=== PATIENT | male | born 1945 | race Caucasian/White ===

== ENCOUNTER 2019-11-11 15:14 | Emergency (ER) | payer OTHER ==
[~2019-11-11] VITALS: Ht 185.4 cm; Wt 106.6 kg
[2019-11-11] MEDS ORDERED: ASA81BEC PO (15:21)
[2019-11-11] MEDS ORDERED: CARVEDILOL12.5 MG PO (15:21)
[2019-11-11] MEDS ORDERED: ACETAMINOPHEN650 M5 PO (15:21)
[2019-11-11] MEDS ORDERED: DEPAKOTE ER500 M1 PO (15:22)
[2019-11-11] MEDS ORDERED: CLONAZEPAM 0.50.5 M1 PO (15:22)
[2019-11-11] MEDS ORDERED: EXCEDRIN CAPLE1 EACH PO (15:23)
[2019-11-11] MEDS ORDERED: METFORMIN HCL500 M3 PO (15:23)
[2019-11-11] MEDS ORDERED: ADVIL200 M3 PO (15:23)
[2019-11-11] MEDS ORDERED: ZOCOR80 MG PO (15:24)
[2019-11-11] MEDS ORDERED: RISPERDAL4 M1 PO (15:24)
[2019-11-11] MEDS ORDERED: PRISTIQ50 MG PO (15:24)
[2019-11-11] MEDS ORDERED: BUPROPION HCL200 M1 PO (15:25)
[2019-11-11] MEDS ORDERED: CENTRUM SILVER1 EAC4 PO (15:25)
[2019-11-11 15:47] LABS: URINE BILIRUBIN NEGATIVE (Negative); URINE BLOOD NEGATIVE (Negative); URINE CLARITY CLEAR; URINE COLOR YELLOW; URINE GLUCOSE-RANDOM 3+ (Negative); URINE KETONES 1+ (Negative); URINE LEUKOCYTES-REFLEX NEGATIVE (Negative); URINE NITRITE-REFLEX NEGATIVE (Negative); URINE PROTEIN NEGATIVE (Negative); URINE SPECIFIC GRAVITY 1.015 (1.005-1.030)
[2019-11-11 16:03] LABS: ABSOLUTE BASOPHILS 0.1 thou/uL (0.0-0.2); ABSOLUTE EOSINOPHILS 0.2 thou/uL (0.0-0.7); ABSOLUTE LYMPHOCYTES 2.1 thou/uL (0.8-5.3); ABSOLUTE NEUTROPHILS 4.1 thou/uL (1.6-8.1); BASOPHILS 0.7 %; EOSINOPHILS 2.8 %; HEMATOCRIT 40.6 % (42.0-52.0); HEMOGLOBIN 14.1 gm/dL (14.0-18.0); LYMPHOCYTES 28.1 %; MCH 32.9 pg (26.0-34.0); MCHC 34.8 g/dL (28.0-37.0); MCV 94.4 fL (80.0-100.0); MPV 8.8 fl. (7.2-11.1); NUCLEATED RBCS 0 /100WBC; PLATELET COUNT* 189 thou/uL (150-400); POLYS 55.4 %; RDW-CV 13.3 % (10.5-14.5); WBC 7.3 thou/uL (4.0-11.0)
[2019-11-11 16:10] LABS: CALCIUM 8.5 mg/dL (8.5-10.1); CREATININE 0.9 mg/dL (0.6-1.3); POTASSIUM 4.1 mmol/L (3.5-5.1)
[2019-11-11 16:20] LABS: ALBUMIN 2.9 g/dL (3.4-5.0); TOTAL BILIRUBIN 0.4 mg/dL (<0.1-1.0)
[2019-11-11] MEDS ORDERED: ZPAK PO (18:18)
[2019-11-11] MEDS ORDERED: IBUPROFEN 800800 M1 PO (18:18)
[2019-11-11] MEDS ORDERED: NORCO 5-325 TA1 EAC1 PO (18:18)
[2019-11-11 18:44] VITALS: BP 150/77
--- NOTE | 2019-11-12 10:50 | EKG ---
[place] [address] ELECTROCARDIOGRAM REPORT Name: CHRIS HUA [id number] Admission: 11/11/19 Attend Phys: Discharge: 11/11/19 Date of : 45 Date of Service: 11/11/19 1543 Report #: [id number] THIS REPORT FOR: //name// [facility] ED Test Date: 2019-11-11 Test Time: 15:43:12 Pat Name: CHRIS HUA Department: Room: Gender: Fruit Inspector: : 1945 Requested By: Shirley Wharton Order Number: [id number] MD: Chris Matson Measurements Intervals [place] Rate: 74 P: -26 MI: 178 QRS: -68 QRSD: 126 T: 80 QT: 398 QTc: 442 Interpretive Statements atrial and Ventricular-paced complexes No previous ECG available for comparison Electronically Signed On 11-12-2019 10:48:44 CDT by Chris Matson [email or web address] <ELECTRONICALLY SIGNED> By: Chris Matson MD, [facility] 11/12/19 1048 1543 1543 Chris Matson MD, [facility] /EPI
== END 2019-11-11 18:48 | disposition home or self-care (01) ==
LOC: M.ERS 15:14
PROVIDERS: Nurse Practitioner Family
DX: M51.36 Other intervertebral disc degeneration, lumbar region (principal); J06.9 Acute upper respiratory infection, unspecified; J44.9 Chronic obstructive pulmonary disease, unspecified; E11.9 Type 2 diabetes mellitus without complications; E78.00 Pure hypercholesterolemia, unspecified; G43.909 Migraine, unspecified, not intractable, without status migrainosus; I10 Essential (primary) hypertension

== ENCOUNTER 2019-11-22 01:02 | Emergency (ER) | payer OTHER ==
[~2019-11-22] VITALS: Ht 185.4 cm; Wt 106.6 kg
[~2019-11-22 01:02] MED LIST: ACETAMINOPHEN650 M5 PO; ADVIL200 M3 PO; ASA81BEC PO; BUPROPION HCL200 M1 PO; CARVEDILOL12.5 MG PO; CENTRUM SILVER1 EAC4 PO; CLONAZEPAM 0.50.5 M1 PO; DEPAKOTE ER500 M1 PO; EXCEDRIN CAPLE1 EACH PO; IBUPROFEN 800800 M1 PO; METFORMIN HCL500 M3 PO; NORCO 5-325 TA1 EAC1 PO; PRISTIQ50 MG PO; RISPERDAL4 M1 PO; ZOCOR80 MG PO; ZPAK PO
[2019-11-22] MEDS ORDERED: CLONAZEPAM 0.50.5 M1 PO (01:35)
[2019-11-22 01:37] LABS: ABSOLUTE BASOPHILS 0.1 thou/uL (0.0-0.2); ABSOLUTE EOSINOPHILS 0.1 thou/uL (0.0-0.7); ABSOLUTE LYMPHOCYTES 2.4 thou/uL (0.8-5.3); ABSOLUTE MONOCYTES 0.9 thou/uL (0.0-1.2); ABSOLUTE NEUTROPHILS 5.9 thou/uL (1.6-8.1); EOSINOPHILS 1.4 %; HEMATOCRIT 39.7 % (42.0-52.0); HEMOGLOBIN 13.8 gm/dL (14.0-18.0); LYMPHOCYTES 25.8 %; MCH 32.5 pg (26.0-34.0); MCHC 34.8 g/dL (28.0-37.0); MCV 93.3 fL (80.0-100.0); MONOCYTES 9.3 %; MPV 8.4 fl. (7.2-11.1); NUCLEATED RBCS 0 /100WBC; PLATELET COUNT* 224 thou/uL (150-400); POLYS 62.5 %; RBC 4.25 mil/uL (4.50-6.00); RDW-CV 13.1 % (10.5-14.5); WBC 9.5 thou/uL (4.0-11.0)
[2019-11-22] MEDS ORDERED: COZAAR 25 MG TA25 M1 PO (01:37)
[2019-11-22] MEDS ORDERED: K-DUR 20 MEQ T20 MEQ PO (01:39)
[2019-11-22] MEDS ORDERED: DEPAKOTE ER500 M1 PO (01:39)
[2019-11-22] MEDS ORDERED: LORATIDINE 10 M10 M1 PO (01:39)
[2019-11-22] MEDS ORDERED: FAMOTIDINE 20 M20 MG PO (01:40)
[2019-11-22] MEDS ORDERED: METFORMIN HCL500 M3 PO (01:42)
[2019-11-22 01:47] LABS: BE 0.6 mmol/L (-2 to +3); PCO2 27.8 mmHg (35.0-45.0); PO2 113.3 mmHg (75.0-100.0); pH 7.521 (7.340-7.450)
[2019-11-22 02:04] LABS: CALCIUM 8.7 mg/dL (8.5-10.1); CREATININE 1.1 mg/dL (0.6-1.3); POTASSIUM 4.4 mmol/L (3.5-5.1)
[2019-11-22 02:10] LABS: ALBUMIN 3.1 g/dL (3.4-5.0); MAGNESIUM 1.7 mg/dL (1.8-2.4); TOTAL BILIRUBIN 0.3 mg/dL (<0.1-1.0); TOTAL PROTEIN 6.9 g/dL (6.4-8.2)
[2019-11-22] MEDS ORDERED: LEVAQUIN 500 M500 MG PO (02:20)
[2019-11-22 02:43] LABS: URINE BILIRUBIN NEGATIVE (Negative); URINE BLOOD NEGATIVE (Negative); URINE CLARITY CLEAR; URINE COLOR YELLOW; URINE GLUCOSE-RANDOM 3+ (Negative); URINE KETONES NEGATIVE (Negative); URINE LEUKOCYTES-REFLEX NEGATIVE (Negative); URINE NITRITE-REFLEX NEGATIVE (Negative); URINE PROTEIN NEGATIVE (Negative); URINE SPECIFIC GRAVITY 1.025 (1.005-1.030)
[2019-11-22 02:50] VITALS: BP 154/76
== END 2019-11-22 02:50 | disposition home or self-care (01) ==
LOC: M.ERS 01:02
PROVIDERS: Personal Emergency Response Attendant
DX: J18.9 Pneumonia, unspecified organism (principal); G47.00 Insomnia, unspecified; E11.9 Type 2 diabetes mellitus without complications; E78.00 Pure hypercholesterolemia, unspecified; J44.9 Chronic obstructive pulmonary disease, unspecified; M19.90 Unspecified osteoarthritis, unspecified site; G43.909 Migraine, unspecified, not intractable, without status migrainosus; F31.9 Bipolar disorder, unspecified; F41.9 Anxiety disorder, unspecified; Z95.0 Presence of cardiac pacemaker

== ENCOUNTER 2019-11-22 05:09 | Inpatient (IN) | payer OTHER ==
[~2019-11-22] VITALS: Ht 185.4 cm; Wt 102.1 kg
[~2019-11-22 05:09] MED LIST changes: +COZAAR 25 MG TA25 M1 PO; +FAMOTIDINE 20 M20 MG PO; +K-DUR 20 MEQ T20 MEQ PO; +LEVAQUIN 500 M500 MG PO; +LORATIDINE 10 M10 M1 PO
[2019-11-22 05:16] VITALS: BP 130/70
[2019-11-22 06:49] LABS: VALPROIC ACID (DEPAKENE) 4.9 mcg/mL (50-100)
[2019-11-22 06:55] LABS: AMP/METHAMP Negative (Negative); BARBITURATES Negative (Negative); BENZODIAZEPINES Negative (Negative); COCAINE Negative (Negative); METHADONE Negative (Negative); OPIATES POSITIVE (Negative); PCP Negative (Negative); THC Negative (Negative)
[2019-11-22 06:55] LABS: ALCOHOL < 10 mg/dL (<10)
--- NOTE | 2019-11-22 07:45 | NUR ---
DR. PARMAR SPOKE WITH THE PATIENT AT THIS TIME. DR. PARMAR D/C'D 1:1 PRECAUTIONS. PT WILL BE ADMITTED INTO THE HOSPITAL FOR FURTHER CARE. PT NOTIFIED AT THIS TIME. PT LAYING IN BED. WILL CONTINUE TO MONITOR.
[2019-11-22 08:27] LABS: ABSOLUTE BASOPHILS 0.1 thou/uL (0.0-0.2); ABSOLUTE EOSINOPHILS 0.2 thou/uL (0.0-0.7); ABSOLUTE LYMPHOCYTES 2.8 thou/uL (0.8-5.3); ABSOLUTE MONOCYTES 1.1 thou/uL (0.0-1.2); ABSOLUTE NEUTROPHILS 6.2 thou/uL (1.6-8.1); BASOPHILS 0.7 %; EOSINOPHILS 1.5 %; HEMATOCRIT 38.1 % (42.0-52.0); HEMOGLOBIN 13.4 gm/dL (14.0-18.0); LYMPHOCYTES 26.9 %; MCH 32.9 pg (26.0-34.0); MCHC 35.2 g/dL (28.0-37.0); MCV 93.4 fL (80.0-100.0); MONOCYTES 10.8 %; MPV 8.7 fl. (7.2-11.1); NUCLEATED RBCS 0 /100WBC; PLATELET COUNT* 204 thou/uL (150-400); POLYS 60.1 %; RBC 4.08 mil/uL (4.50-6.00); RDW-CV 13.1 % (10.5-14.5); WBC 10.3 thou/uL (4.0-11.0)
[2019-11-22 08:31] LABS: CALCIUM 8.5 mg/dL (8.5-10.1); CREATININE 1.2 mg/dL (0.6-1.3); POTASSIUM 3.7 mmol/L (3.5-5.1)
[2019-11-22 08:36] LABS: ALBUMIN 2.8 g/dL (3.4-5.0); TOTAL BILIRUBIN 0.3 mg/dL (<0.1-1.0); TOTAL PROTEIN 6.4 g/dL (6.4-8.2)
[2019-11-22 10:02] VITALS: BP 145/59
--- NOTE | 2019-11-22 10:44 | EKG ---
[place] [address] ELECTROCARDIOGRAM REPORT Name: CHRIS HUA Room: [place] [address] ADM IN M.R.#: [id number] Admission: 11/22/19 Attend Phys: Jacque Diamond, Discharge: Date of : 45 Date of Service: 11/22/19 0124 Report #: [id number] THIS REPORT FOR: //name// [facility] ED Test Date: 2019-11-22 Test Time: 01:24:13 Pat Name: CHRIS HUA Department: Room: [place] [address] Gender: M Project Administrative Assistant: NEVIN : 1945 Requested By: Jacque Diamond Order Number: [id number] MD: Chris Matson Measurements Intervals [place] Rate: 81 P: [place]: 200 QRS: 32 QRSD: 166 T: -86 QT: 426 QTc: 495 Interpretive Statements Atrial-ventricular dual-paced complexes No further rhythm analysis attempted due to paced rhythm Baseline wander in lead(s) V1,V2 Compared to ECG 11/11/2019 15:43:12 paced rhythm now present Electronically Signed On 11-22-2019 10:42:40 CDT by Chris Matson [email or web address] <ELECTRONICALLY SIGNED> By: Chris Matson MD, [facility] 11/22/19 1042 0124 0124 Chris Matson MD, [facility] /EPI
[2019-11-22 11:00] VITALS: BP 146/58
[2019-11-22 14:00] VITALS: BP 138/64
[2019-11-22 19:30] VITALS: BP 136/65
--- NOTE | 2019-11-22 19:31 | NUR ---
RECEIVED REPORT FROM NEELAM HOLGUIN RN. 74 Y/O MALE ADMITTED FOR DYSPNEA, ANXIETY, AND COPD EXACERBATION. PATIENT A&OX4 BUT INAPPROPRIATE AT TIMES. PATIENT TO CT TODAY. 18G IV INSERTED INTO R AC FOR CT SCAN. VSS. LSCTA. BED IN LOWEST LOCKED POSITION AND CALL LIGHT IN REACH.
[2019-11-22 23:33] VITALS: BP 136/74
[2019-11-23 04:43] VITALS: BP 156/70
--- NOTE | 2019-11-23 06:43 | NUR ---
PT WAS UP MOST OF SHIFT. VSS ON RA. MEDS GIVEN PER EMAR. PT DENIES PAIN, N/V. COVID TEST CAME BACK NEGATIVE. PSYCHOTHERAPIST SOCIAL WORKER NOTIFIED. PT AMBULATES VIA WALKER. FALL PRECAUTION IN PLACE. CALL LIGHT WITHIN REACH. HOURLY ROUNDINGS MADE. WILL CONTINUE TO MONITOR.
[2019-11-23 06:46] LABS: HEMATOCRIT 37.4 % (42.0-52.0); HEMOGLOBIN 13.1 gm/dL (14.0-18.0); MCH 32.5 pg (26.0-34.0); MCHC 34.9 g/dL (28.0-37.0); MCV 93.2 fL (80.0-100.0); MPV 8.8 fl. (7.2-11.1); RBC 4.02 mil/uL (4.50-6.00); RDW-CV 13.3 % (10.5-14.5); WBC 9.9 thou/uL (4.0-11.0)
[2019-11-23 06:59] LABS: ALBUMIN 2.7 g/dL (3.4-5.0); CALCIUM 8.5 mg/dL (8.5-10.1); MAGNESIUM 1.7 mg/dL (1.8-2.4); POTASSIUM 3.9 mmol/L (3.5-5.1); TOTAL BILIRUBIN 0.3 mg/dL (<0.1-1.0); TOTAL PROTEIN 6.3 g/dL (6.4-8.2)
[2019-11-23 08:00] VITALS: BP 125/66
--- NOTE | 2019-11-23 14:48 | NUR ---
PT.LIVES HOME ALONE. NORMALLY INDEPENDENT. PER NURSING,PT.HAS ANXIETY AND DEPRESSION ISSUES. HAD TO PUT HIS IN A SNF LAST YEAR DUE TO HER DEMENTIA. HE MISSES HER TERRIBLY. [facility] SPOKE WITH HIS BROTHER/DPOA,ROSANNA [phone]. HE SAID PT.WANTS TO GO LIVE A [facility] WITH HIS . CM SPOKE WITH PT. HE CONFIRMED THIS. TOLD HIM I WOULD CHECK INTO THIS. CM [phone]. EXPLAINED SITUATION. SHE SAID PT.S IS ON THEIR DEMENTIA UNIT. HE WOULD NOT BE ABLE TO BE IN SAME ROOM BUT COULD GO TO VISIT HER. HE WOULD NEED TO MOST LIKELY START SKILLED IF INS. WOULD APPROVE. FAXED HER REFERRAL INFORMAITON TO [phone], ALONG WITH NEG.COVID TEST RESULTS. CM WILL NEED TO FAX PT/OT EVALS WHEN OBTAINED.
--- NOTE | 2019-11-23 15:35 | NUR ---
REPORT TO NICOLÁS THURMAN
[2019-11-23 16:09] VITALS: BP 124/65
--- NOTE | 2019-11-23 16:18 | NUR ---
RECEIEVIED REPORT FROM [facility] PAGE OF EXPECTED TRANSFER AT 1506- PT ARRIVED TO UNIT VIA BED WITH 2 TRANSPORTERS TO ROOM 225 AT 1552- MAKEUP SALES ADVISOR PLACED ORDERED, PACE MAKER NOTED AND V-PACED- VS 97.4 18 124/65 71 98% ON RA- LCTA/DIMINISHED IN BASES- ABD SOFT/ROUND/NON-TENDER, BS X4 QUADS- LAST BM REPORTED 11/22/19- IV NOTED TO RIGHT AC AND LEFT WRIST INTACT AND SL- BS MONITORED ORDERED WITH SSI PRESCRIBED-PT NOTED TO BE SLEEPY UPOPN ASSESSMENT, REPORTS TO NOT OF SLEPT WELL THE LAST 2 DAYS- WORKING WITH THERAPIES PRESCIBED THIS SHIFT- CALL LIGHT AND PERSONAL BELONGINGS WITH IN REACH- ALL NEEDS MET AT THIS TIME-WCTM
--- NOTE | 2019-11-23 17:07 | NUR ---
PT. SAYS HE IS INTERESTED IN GOING TO [facility] WHERE HIS RESIDES. IF PT. GOES TO [facility] OR [facility], PT. MAY NEED A SCREW MACHINE ADJUSTER AUTOMATIC ASSIGNED WITH A MENTAL HEALTH NETWORK. PT. WOULD BENEFIT FROM [employer] AND/OR [employer] DUE TO PT. STATING HE HAS DIFFICULTY CLEANING HIS HOUSE AND ONLY EATS 1 MEAL A DAY. PT. ALSO SAYS HE HASN'T BEEN IN THE TUB/SHOWER FOR 1.5 YEARS SINCE "IT'S HARD TO GET OVER THE WALL OF THE TUB".
[2019-11-23 20:00] VITALS: BP 142/62
[2019-11-24] VITALS: BP 123/56
[2019-11-24 04:00] VITALS: BP 136/63
--- NOTE | 2019-11-24 04:53 | NUR ---
ASSUMED PT CARE AT APPROX 1930. PT IS AWAKE AND ORIENTED X4. PT IS A/AV PACED IN THE TRANSPORTER RADIOLOGY. ASSESSMENT DONE AND CHARTED. PT C/O HEADACHE RELIEVED BY PAIN MEDICATION GIVEN PER MAR. HIGH FALL PRECAUTIONS IN PLACE. CALL LIGHT WITHIN REACH. HOURLY ROUNDING DONE FOR PT SAFETY.
[2019-11-24 05:32] LABS: HEMATOCRIT 37.4 % (42.0-52.0); MCH 32.4 pg (26.0-34.0); MCHC 34.7 g/dL (28.0-37.0); MCV 93.3 fL (80.0-100.0); MPV 8.4 fl. (7.2-11.1); RBC 4.01 mil/uL (4.50-6.00); RDW-CV 13.3 % (10.5-14.5); WBC 10.6 thou/uL (4.0-11.0)
[2019-11-24 05:55] LABS: ALBUMIN 2.6 g/dL (3.4-5.0); CALCIUM 8.4 mg/dL (8.5-10.1); CREATININE 0.9 mg/dL (0.6-1.3); POTASSIUM 3.8 mmol/L (3.5-5.1); TOTAL BILIRUBIN 0.2 mg/dL (<0.1-1.0); TOTAL PROTEIN 6.1 g/dL (6.4-8.2)
[2019-11-24 07:30] VITALS: BP 130/56
--- NOTE | 2019-11-24 08:28 | NUR ---
ASSUMED CARE OF PT THIS AM AROUND 0715- CABINETMAKER SUPERVISOR NOTED IN PLACE, TRACING V-PACED WITH 1ST DEGREE/BBB; OCCASSIONAL AV-PACED NOTED- UPON ASSESSMENT PT NOTED TO BE RESTING IN BED, WATCHING TV- PT A&O X4- CONT OF BOWEL AND BLADDER- SBA WITH TRANSFERS NOTED FOR SAFETY- VSS, O2 SAT 94% ON RA- ABD SOFT/ROUND/NON-TENDER, BS X4 QUADS- LAST BM REPORTED 11/23/19-GOOD PO INTAKE NOTED THIS AM WITH BREAKFAST, BS MONITORED ORDERED WITH SSI PRESCRIBED- IV NOTED TO RIGHT WRIST AND RIGHT AC INTACT AND SL- IV ABT GIVEN THIS AM PRESCRIBED- TRACE EDEMA NOTED TO BLE- PT DENIES ANY C/O PAIN/DISCOMFORT AT THIS TIME- CALL LIGHT AND PERSONAL BELONGINGS WITH IN REACH- PT MAKES NEEDS KNOWN- ALL NEEDS MET AT THIS TIME-WCTM
[2019-11-24] MEDS ORDERED: MEDROLDOSEPACK PO (13:13)
[2019-11-24] MEDS ORDERED: LEVAQUIN 750 M750 MG PO (13:13)
[2019-11-24 14:15] VITALS: BP 130/56
[2019-11-24 15:25] VITALS: BP 132/69
--- NOTE | 2019-11-24 15:26 | NUR ---
Pt discharging to home today, now requesting HH. CM to get orders signed tomorrow and arrange for Pt. Updated nurse
--- NOTE | 2019-11-25 12:13 | NUR ---
CM faxed HH referral to [facility] per Pt's request
== END 2019-11-24 15:30 | disposition home health service (06) | DRG 177 ==
LOC: M.ERS 05:09 → M.TBA-ER 07:40 → M.ORTHSURG 07:40 → M.2W 07:40 → M.ORTHSURG 10:49 → M.2W 11-23 16:00
PROVIDERS: Personal Emergency Response Attendant; ADMIT Internal Medicine
DX: J15.6 Pneumonia due to other Gram-negative bacteria (principal); J96.01 Acute respiratory failure with hypoxia; E87.3 Alkalosis; J44.1 Chronic obstructive pulmonary disease with (acute) exacerbation; J44.0 Chronic obstructive pulmonary disease with (acute) lower respiratory infection; F41.9 Anxiety disorder, unspecified; E11.9 Type 2 diabetes mellitus without complications; F31.9 Bipolar disorder, unspecified; E78.00 Pure hypercholesterolemia, unspecified; G43.909 Migraine, unspecified, not intractable, without status migrainosus; M19.90 Unspecified osteoarthritis, unspecified site; E78.5 Hyperlipidemia, unspecified; Z20.828 Contact with and (suspected) exposure to other viral communicable diseases; Z95.0 Presence of cardiac pacemaker; Z79.82 Long term (current) use of aspirin; Z79.899 Other long term (current) drug therapy; Z79.84 Long term (current) use of oral hypoglycemic drugs

== ENCOUNTER 2019-12-03 03:15 | Inpatient (IN) | payer OTHER ==
[~2019-12-03] VITALS: Ht 185.4 cm; Wt 106.6 kg
[~2019-12-03 03:15] MED LIST changes: +LEVAQUIN 750 M750 MG PO; +MEDROLDOSEPACK PO
[2019-12-03 03:20] VITALS: BP 159/69
[2019-12-03 03:48] LABS: ABSOLUTE BASOPHILS 0.1 thou/uL (0.0-0.2); ABSOLUTE EOSINOPHILS 0.3 thou/uL (0.0-0.7); ABSOLUTE LYMPHOCYTES 2.9 thou/uL (0.8-5.3); ABSOLUTE MONOCYTES 0.9 thou/uL (0.0-1.2); ABSOLUTE NEUTROPHILS 5.9 thou/uL (1.6-8.1); BASOPHILS 0.6 %; EOSINOPHILS 3.4 %; HEMATOCRIT 44.1 % (42.0-52.0); HEMOGLOBIN 15.3 gm/dL (14.0-18.0); LYMPHOCYTES 28.4 %; MCH 32.8 pg (26.0-34.0); MCHC 34.6 g/dL (28.0-37.0); MCV 94.8 fL (80.0-100.0); MONOCYTES 8.6 %; MPV 9.5 fl. (7.2-11.1); NUCLEATED RBCS 0 /100WBC; PLATELET COUNT* 190 thou/uL (150-400); RBC 4.65 mil/uL (4.50-6.00); RDW-CV 13.4 % (10.5-14.5); WBC 10.1 thou/uL (4.0-11.0)
[2019-12-03 03:49] LABS: URINE BILIRUBIN NEGATIVE (Negative); URINE BLOOD NEGATIVE (Negative); URINE CLARITY CLEAR; URINE COLOR YELLOW; URINE GLUCOSE-RANDOM 3+ (Negative); URINE KETONES NEGATIVE (Negative); URINE LEUKOCYTES-REFLEX NEGATIVE (Negative); URINE NITRITE-REFLEX NEGATIVE (Negative); URINE PROTEIN NEGATIVE (Negative); URINE SPECIFIC GRAVITY <= 1.005 (1.005-1.030); URINE UROBILINOGEN 0.2 E.U./dl (0.2-1.0)
[2019-12-03 03:55] LABS: AMP/METHAMP Negative (Negative); BARBITURATES Negative (Negative); BENZODIAZEPINES Negative (Negative); COCAINE Negative (Negative); METHADONE Negative (Negative); OPIATES Negative (Negative); PCP Negative (Negative); THC Negative (Negative)
[2019-12-03 03:56] LABS: PO2 113.9 mmHg (75.0-100.0)
[2019-12-03 03:58] LABS: CALCIUM 8.6 mg/dL (8.5-10.1); CREATININE 1.1 mg/dL (0.6-1.3)
[2019-12-03 04:02] LABS: ALBUMIN 3.2 g/dL (3.4-5.0); MAGNESIUM 1.9 mg/dL (1.8-2.4); TOTAL BILIRUBIN 0.4 mg/dL (<0.1-1.0); TOTAL PROTEIN 6.7 g/dL (6.4-8.2)
[2019-12-03 04:06] LABS: INFLUENZA A ANTIGEN Negative (Negative); INFLUENZA B ANTIGEN Negative (Negative)
[2019-12-03 06:15] VITALS: BP 139/80
[2019-12-03 06:20] VITALS: BP 145/59
--- NOTE | 2019-12-03 07:38 | NUR ---
REPORT RECIEVD FROM ER. PT ADMITTED TO ROOM 114. ADMISSION HISTORY COMPLETED. COVID TEST SENT TO LAB. ISOLATION MAINTAINED. IV PATENT, FLUIDS INFUSING. NO REPORTS OF PAIN. REPORT GIVEN TO KEL THURMAN.
[2019-12-03 08:00] VITALS: BP 138/60
--- NOTE | 2019-12-03 11:10 | EKG ---
[place] [address] ELECTROCARDIOGRAM REPORT Name: CHRIS HUA Room: 114- ADM IN M.R.#: [id number] Admission: 12/03/19 Attend Phys: Blanco Hannah, Discharge: Date of : 45 Date of Service: 12/03/19 0517 Report #: [id number] THIS REPORT FOR: //name// [facility] ED Test Date: 2019-12-03 Test Time: 05:17:21 Pat Name: CHRIS HUA Department: Room: [facility] Gender: M Occupational Health Nursing Director: [facility] : 1945 Requested By: Florencia Bowen Order Number: [id number] MD: Kashif Hung Measurements Intervals [place] Rate: 85 P: 16 UT: 217 QRS: -31 QRSD: 122 T: -50 QT: 383 QTc: 456 Interpretive Statements Atrial sensed Ventricular-paced complexes No further analysis attempted due to paced rhythm Baseline wander in lead(s) V2 Compared to ECG 11/22/2019 01:24:13 Paced complex(es) persist Electronically Signed On 12-03-2019 11:09:03 CDT by Kashif Hung [email or web address] <ELECTRONICALLY SIGNED> By: Kashif Hung MD, [facility] 12/03/19 1109 6 6 Kashif Hung MD, [facility] /EPI
[2019-12-03 15:00] VITALS: BP 125/62
--- NOTE | 2019-12-03 18:59 | NUR ---
ASSUMED PT CARE AT 0730. ASSESSMENT COMPLETED CHARTED. ABLE TO MAKE NEEDS KNOWN. UP AD JACEK. RESTING IN BED MOST OF THE DAY. NO C/O PAIN, JUST SOA AND ANXIETY. HYPERVENTILATING AT TIMES, TAUGHT BREATHING TECHNIQUES AND DISTRACTION. MORNING MEDICATION RESTARTED AND GIVEN. WHEN IV KEPT SOUNDING, IT MADE HIM GO INTO A PANIC ATTACK. STARTED YELLING AT STAFF AND STATED HE WAS GOING TO RIP OUT HIS IV AND RUN DOWN THE HALLWAY. NOTIFIED DOCTOR AND NEW ORDERS GIVEN. TELEPSYCH DONE AND RECOMMENDATIONS WENT OVER WITH DOCTOR. IV FLUIDS RUNNING PER EMAR. NO FURTHER PANIC ATTACKS AFTER TURNING ON TV. WILL CONTINUE TO MONITOR.
[2019-12-03 20:13] VITALS: BP 116/59
--- NOTE | 2019-12-04 05:34 | NUR ---
PT SLEPT PART OF SHIFT. ASSESSMENT DOCUMENTED. MEDS GIVEN PER E-MAR. IV PATENT, FLUIDS FINISHED INSFUSING. NO REPORTS OF PAIN THIS SHIFT. PT TOOK O2 OFF PART OF SHIFT, PT BECAME SOA WHILE SLEEPING, PT BACK ON 2L NC. ISOLATION MAINTAINED. WILL CONTINUE WITH PLAN OF CARE.
[2019-12-04 05:41] LABS: CALCIUM 7.7 mg/dL (8.5-10.1); CREATININE 0.8 mg/dL (0.6-1.3); MAGNESIUM 1.6 mg/dL (1.8-2.4); POTASSIUM 4.1 mmol/L (3.5-5.1)
[2019-12-04 09:34] VITALS: BP 139/66
--- NOTE | 2019-12-04 14:57 | NUR ---
ASSUMED PT CARE AT 0730, FULL ASSESSMENT DONE CHARTED. PT A/O X4, FORGETFUL. DENIES PAIN, ON RA, DENIES SOA, HE DOES HOWEVER BREATH THOUGH HE IS SOA, HE STATES HE IS ANXOIUS. O2 SAT 99% ON RA. LUNGS CLEAR. HE IS INCONTINANT OF URINE. HAD A BRIEF ON AND STATES IT HAS BEEN THE SAME BRIEF FOR SEVERAL DAYS.HE DOES HAVE REDNESS TO THE SROTAL/PENAL AREA. HE WAS WASHED UP, BARRIER CREAM APPLIED TO THE AREA, NEW BRIEF APPLIED. HE WAS MEDICATED FOR ANXIETY, BED ALARM ON, DOES SOMETIMES CALL FOR HELP. STATES HE WANTS SOMEONE TO HELP SET UP GOING TO A [place] ON [place] FOR HIM. CM CONSULTED FOR THIS.
[2019-12-04 16:30] VITALS: BP 153/75
[2019-12-04 20:00] VITALS: BP 128/49
--- NOTE | 2019-12-05 06:41 | NUR ---
ASSUMED PT CARE AT APPROX 1930. PT IS AWAKE AND ORIENTED X4-FORGETFUL. ASSESSMENT DONE AND CHARTED. PT DENIES PAIN/DISCOMFORT. NO ACUTE CHANGES OVERNIGHT. CALL LIGHT WITHIN REACH. HOURLY ROUNDING DONE FOR PT SAFETY. FALL PRECAUTIONS IN PLACE.
[2019-12-05 08:00] VITALS: BP 135/60
[2019-12-05 16:00] VITALS: BP 154/70
--- NOTE | 2019-12-05 19:43 | NUR ---
PT A&O x4. VSS. UP AD JACEK. TOLERATING DIET. HYDROCODONE GIVEN ONCE FOR BACK PAIN. BM TODAY. PROGRESSING TOWARDS GOALS.
[2019-12-05 21:44] VITALS: BP 127/66
--- NOTE | 2019-12-06 06:21 | NUR ---
PATIENT SLEPT WELL THROUGHOUT THE NIGHT. VSS ON RA. PATIENT UP AD-JACEK. MEDICATIONS GIVEN ORDERED AND CHARTED. ASSESSMENT CHARTED. IV IN RIGHT AC-SL. PATIENT INSTRUCTED TO USE CALL LIGHT WHEN NEEDING ASSISTANCE. HOURLY ROUNDS MADE. WILL CONTINUE WITH PLAN OF CARE AND NURSING TO MONITOR.
[2019-12-06 08:30] VITALS: BP 127/65
[2019-12-06 13:18] VITALS: BP 127/65
--- NOTE | 2019-12-06 13:43 | NUR ---
SPOKE WITH PT.IN ROOM ON PHONE. HE SAID HE IS PLANNING ON DISCHARGING TODAY. HE WILL GO HOME. HE STILL WANTS TO GO TO [facility] WHERE HIS LIVES BUT NEEDS TO GET THINGS IN ORDER FIRST. HE IS INTERESTED IN APPLYING FOR MEDICAID. TOLD HIM I WOULD REFER HIM TO [employer] LUIS CARLOS, WILL CALL HIM FROM THERE TO SEE IF HE WOULD QUALIFY FOR MEDICAID. HE THINKS HE WILL. HE LIVES IN A .APT.THAT IS LOW INCOME HOUSING. HE SAID HE DOESN'T GET MUCH FROM . [facility] HE DOES NOT HAVE A PHONE RIGHT NOW. HE PLANS ON BUYING ONE AT [facility] AFTER HE GETS OUT OF THE HOSPITAL. HE WILL CALL TO GIVE ME HIS NUMBER TO PASS ON TO [employer]. HE ALSO WOULD LIKE SOMEONE TO CLEAN HIS HOUSE AND MAYBE HELP HIM WITH SELF CARE. FAXED LIST OF PRIVATE DUTY AGENCIES TO HIS NURSE,EZRA. TOLD HIM SHE WOULD REVIEW IT WITH HIM. HE KNOWS HE WILL NEED TO SET UP HIMSELF AND IT IS AN OUT OF POCKET EXPENSE. 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 HE SAID HE HAS NOT APPLIED FOR MEDICAID YET.
[2019-12-06 15:09] VITALS: BP 127/65
== END 2019-12-06 15:50 | disposition home or self-care (01) | DRG 638 ==
LOC: M.ERS 03:15 → M.TBA-ER 05:17 → M.ORTHSURG 05:17
PROVIDERS: Internal Medicine; Personal Emergency Response Attendant; ADMIT Internal Medicine
DX: E11.65 Type 2 diabetes mellitus with hyperglycemia (principal); E87.2 Acidosis; F31.9 Bipolar disorder, unspecified; F41.0 Panic disorder [episodic paroxysmal anxiety]; E78.00 Pure hypercholesterolemia, unspecified; R06.4 Hyperventilation; G43.909 Migraine, unspecified, not intractable, without status migrainosus; G89.29 Other chronic pain; T38.0X5A Adverse effect of glucocorticoids and synthetic analogues, initial encounter; F41.1 Generalized anxiety disorder; J44.9 Chronic obstructive pulmonary disease, unspecified; M19.90 Unspecified osteoarthritis, unspecified site; Z20.828 Contact with and (suspected) exposure to other viral communicable diseases; Z95.0 Presence of cardiac pacemaker; Z79.84 Long term (current) use of oral hypoglycemic drugs; Z79.82 Long term (current) use of aspirin; Z79.899 Other long term (current) drug therapy; Z72.89 Other problems related to lifestyle; Y92.89 Other specified places as the place of occurrence of the external cause; Z87.01 Personal history of pneumonia (recurrent)